=== PATIENT | male | born 1985 | race Caucasian/White ===

== ENCOUNTER 2017-03-20 10:28 | Emergency (ER) | payer SELFPAY ==
[~2017-03-20] VITALS: Ht 172.7 cm; Wt 79.4 kg
--- NOTE | 2017-03-20 10:28 | NUR ---
Patient was BIBA and taken to bed 08 via gurney per EMS.
[2017-03-20 10:30] VITALS: BP 129/89
--- NOTE | 2017-03-20 10:30 | NUR ---
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 ER MD MADE AWARE OF PT STATUS. WILL CONTINUE TO MONTIOR.
[2017-03-20] MEDS ORDERED: NACL 0.9% 1,000 ML IV ONE (10:35)
[2017-03-20] MEDS ORDERED: fentaNYL 0.05 MG/ML VIAL IVP ONE ×2 (10:35→12:15)
--- NOTE | 2017-03-20 10:35 | NUR ---
Dr. Crowell at bedside to evaluate patient.
--- NOTE | 2017-03-20 10:58 | NUR ---
XRAY at bedside.
--- NOTE | 2017-03-20 11:51 | NUR ---
PT VERBALIZED I HAVE NO PAIN , BUT WHEN I MOVE MY FOOT THEN I HAVE PAIN, PT CALM EYES CLOSE, NOTED PURPLISH DISCOLORATION ON LEFT FOOT IV FLUID ONGOING WELL TOLERATED.
--- NOTE | 2017-03-20 12:26 | NUR ---
LAB AT BEDSIDE
[2017-03-20 12:34] LABS: BASOPHILS # (AUTO) 0.2 K/uL (0.00-0.22); BASOPHILS % (AUTO) 1.7 % (0.0-2.0); EOSINOPHILS # (AUTO) 0.1 K/uL (0-0.4); EOSINOPHILS % (AUTO) 0.7 % (0.0-4.0); HEMATOCRIT 41.7 % (36-52); HEMOGLOBIN 14.1 g/dL (12.0-18.0); LYMPHOCYTES # (AUTO) 1.5 K/uL (2.0-11.5); LYMPHOCYTES % (AUTO) 17.1 % (20.5-51.1); MEAN CORPUSCULAR HEMOGLOBIN 31 pg (27-31); MEAN CORPUSCULAR HGB CONC 34 g/dL (33-37); MEAN CORPUSCULAR VOLUME 91 fL (80-94); MONOCYTES # (AUTO) 0.8 K/uL (0.8-1.0); MONOCYTES % (AUTO) 8.6 % (1.7-9.3); NEUTROPHILS # (AUTO) 6.3 K/uL (1.8-7.7); NEUTROPHILS % (AUTO) 71.9 % (42.2-75.2); PLATELET COUNT (AUTO) 227 K/uL (140-450); RED BLOOD CELL COUNT(AUTO) 4.61 MIL/uL (4.20-6.10); RED CELL DISTRIBUTION WIDTH 14.9 % (11.6-13.7); WHITE BLOOD COUNT (AUTO) 8.9 K/uL (4.8-10.8)
[2017-03-20 12:48] LABS: ANION GAP 11.6 (8-16); CARBON DIOXIDE 30.1 mmol/L (21-32); CREATININE 0.8 mg/dL (0.7-1.3); POTASSIUM 3.7 mmol/L (3.5-5.1)
--- NOTE | 2017-03-20 12:48 | NUR ---
er md douglas by bedside updating pt by bedside; pt verbalized understanding
[2017-03-20 12:53] LABS: PROTHROMBIN TIME 10.6 secs (10.8-13.4)
[2017-03-20 12:54] LABS: ALBUMIN 3.7 g/dL (3.4-5.0); TOTAL BILIRUBIN 0.4 mg/dL (0.0-1.0)
--- NOTE | 2017-03-20 12:56 | NUR ---
Crutches dispensed. Taught proper use, patient returned demo.
[2017-03-20 13:05] VITALS: BP 138/81
--- NOTE | 2017-03-20 13:05 | NUR ---
Patient discharged with v/s stable. Written and verbal after care instructions given and explained. Patient alert, oriented and verbalized understanding of instructions. Ambulatory with steady gait with crutches. All questions addressed prior to discharge. ID band removed. Patient advised to follow up with PMD. Rx of Pringle and Motrin given. Patient educated on indication of medication including possible reaction and side effects. Opportunity to ask questions provided and answered.
== END 2017-03-20 13:05 | disposition home or self-care (01) ==
LOC: MED 10:28
DX: S82.302A Unspecified fracture of lower end of left tibia, initial encounter for closed fracture (principal); S82.832A Other fracture of upper and lower end of left fibula, initial encounter for closed fracture; W13.8XXA Fall from, out of or through other building or structure, initial encounter; Y93.39 Activity, other involving climbing, rappelling and jumping off; Y92.89 Other specified places as the place of occurrence of the external cause; Y99.8 Other external cause status
CPT/HCPCS: 29515; 36415; 73562; 73610; 80053; 85025; 85610; 85730; 96361; 96374; 96376; 99285; J3010; J7030; Q0092